=== PATIENT | female | born 1980 | race Hispanic/Latino ===

== ENCOUNTER 2016-11-04 20:42 | Emergency (ER) | payer MEDICAID ==
[2016-11-04] MEDS ORDERED: VALTREX PO ONE (22:39)
[2016-11-04] MEDS ORDERED: NORCO 5/325 PO ONE (22:39)
[2016-11-04] MEDS ORDERED: DELTASONE PO ONE (22:39)
--- NOTE | 2016-11-04 22:45 | Emergency Department Report ---
ED Rash HPI - HPI Chief Complaint: Skin Rash Stated Complaint: RASH UNDER BREAST Time Seen by Provider: 11/04/16 22:34 Duration: 2 Days Location: Chest Suspected Cause: Unknown Rash Symptoms: Yes Itching, Yes Blistering (consistent with shingles ), No Facial Swelling, No Tongue/Oral Swelling, No Breathing Difficulties, No Choking Sensation, No Wheezing/Dyspnea, No Peeling, No Fever ED Review of Systems ROS: Stated complaint: RASH UNDER BREAST Other details as noted in HPI Constitutional: denies: chills, fever Eyes: denies: eye pain, eye discharge, vision change ENT: denies: ear pain, throat pain Respiratory: denies: cough, shortness of breath, wheezing Cardiovascular: denies: chest pain, palpitations Endocrine: no symptoms reported Gastrointestinal: denies: abdominal pain, nausea, diarrhea Genitourinary: denies: urgency, dysuria, discharge Musculoskeletal: denies: back pain, joint swelling, arthralgia Skin: denies: rash, lesions Neurological: denies: headache, weakness, paresthesias Psychiatric: denies: anxiety, depression Hematological/Lymphatic: denies: easy bleeding, easy bruising ED Past Medical Hx - Past Medical History Previous Medical History?: No - Surgical History Past Surgical History?: Yes Additional Surgical History: hysterectomy - Social History Smoking Status: Current Every Day Smoker Substance Use Type: None - Medications Home Medications: Home Medications Medication Instructions Recorded Confirmed Last Taken Type Acetaminophen/Codeine [Tylenol 1 tab PO Q6H PRN #24 tab 11/04/16 Unknown Rx /Codeine # 3 tab] Valacyclovir HCl [Valtrex] 1,000 mg PO BID #20 tab 11/04/16 Unknown Rx predniSONE [Deltasone] 40 mg PO QDAY #10 tab 11/04/16 Unknown Rx Rash Exam - Exam General: Vital signs noted. No distress. Alert and acting appropriately. HEENT: No Periorbital Edema, No Conjuctival Injection, No Chemosis, No Perioral Edema, No Tongue Edema, No Uvular Edema, No Compromised Airway, No Drooling Lungs: Yes Good Air Exchange, No Wheezes, No Ronchi, No Stridor, No Cough, No Labored Respirations, No Retractions, No Use of Accessory Muscles, No Other Abnormal Lung Sounds Heart: Yes Regular, No Murmur Skin: Yes Urticarial Rash, Yes Maculopapular Rash, Yes Excoriations, Yes Tenderness, Yes Erythema, Yes Edema, Yes Encrustations, No Weeping, No Other Other: Positive: Abdomen Normal, Neurologic Normal, Musculoskeletal Normal ED Course Vital Signs 11/04/16 20:48 Temperature 98.1 F Pulse Rate 84 Respiratory 16 Rate Blood Pressure 138/90 O2 Sat by Pulse 96 Oximetry ED Medical Decision Making - Medical Decision Making pt is a 36 y/o w/f who presents for shingles rash x 2 days rash is red raise macropapular with multiple encrustations, burning painful to touch , plan valtrax, tylenol 3, prednisone, follow up with primary care doctor next week pt verbalized agreement and understanding with discharge plan. Critical care attestation.: If time is entered above; I have spent that time in minutes in the direct care of this critically ill patient, excluding procedure time. ED Disposition Clinical Impression: Shingles rash Qualifiers: Herpes zoster complications: disseminated zoster Qualified Code(s): B02.7 - Disseminated zoster Disposition: - TO HOME OR SELFCARE Is pt being admited?: No Does the pt Need Aspirin: No Condition: Good Instructions: Herpes Zoster (ED) Prescriptions: Acetaminophen/Codeine [Tylenol /Codeine # 3 tab] 1 tab PO Q6H PRN #24 tab PRN Reason: Pain predniSONE [Deltasone] 40 mg PO QDAY #10 tab Valacyclovir HCl [Valtrex] 1,000 mg PO BID #20 tab Forms: Work/School Release Form(ED) Time of Disposition: 22:48
[2016-11-04 23:00] VITALS: BP 118/74
== END 2016-11-04 22:59 | disposition home or self-care (01) ==
LOC: ED 20:42
DX: B02.7 Disseminated zoster (principal); F17.200 Nicotine dependence, unspecified, uncomplicated
CPT/HCPCS: 99282; J7512